=== PATIENT | female | born 1995 | race Caucasian/White ===

== ENCOUNTER 2021-05-14 20:34 | Emergency (ER) | payer BC, MEDICAID ==
[~2021-05-14] VITALS: Ht 165.1 cm; Wt 72.7 kg
[2021-05-14] MEDS ORDERED: LIDO20SO16 PO (21:21)
[2021-05-14] MEDS ORDERED: PENI250T2 PO (21:21)
[2021-05-14 21:27] VITALS: BP 122/71
== END 2021-05-14 21:29 | disposition home or self-care (01) ==
LOC: ER 20:35
DX: K08.89 Other specified disorders of teeth and supporting structures (principal); Z56.0 Unemployment, unspecified; Z79.2 Long term (current) use of antibiotics; Z79.899 Other long term (current) drug therapy
CPT/HCPCS: 99283